=== PATIENT | male | born 1970 | race Caucasian/White ===

== ENCOUNTER → 2018-01-06 | Outpatient (CLI) | payer BC ==
--- NOTE | 2018-01-06 10:14 | P.STRESS ---
- Stress Test Note Stress Test Results/Findings: Exam Performed: stress echo exercise Exam Date: 01/06/18 Reason for Exam: CP Height: 5 ft 11 in Weight: 77.111 kg Protocol: STRESS ECHO Stage: IV Duration of Exercise: 12 Resting Heart Rate: 60 Resting Blood Pressure: 120/68 Maximum Achieved Heart Rate: 159 Maximum Achieved Blood Pressure: 189/65 85% PMHR: 145 100% PMHR: 171 METS: 12.1 Technologist Comment: Stress Test Results/Findings: This is a 47-year-old gentleman with history of of abnormal EKG and known ischemic heart disease being evaluated for cardiac status. He Stress data: Baseline EKG showed a sinus rhythm with normal NV interval and QRS duration. Blood pressure at rest is 120/68 with pulse rate of 60. Patient walked on the Yossi protocol for 12 minutes achieving a maximum heart rate of 159 with a blood pressure of 189/65. EKGs taken during and after exercise did not reveal any changes to suggest ischemia. Echo data: Baseline echo images showed normal wall motion and thickening. Exercise echo images showed augmentation of wall motion and thickening in all segments. Final impression: #1. Negative stress test #2. Negative stress echo
--- NOTE | 2018-01-07 16:13 | ECHOS ---
Stress Test Results/Findings: Exam Performed: stress echo exercise Exam Date: 01/06/18 Reason for Exam: CP Height: 5 ft 11 in Weight: 77.111 kg Protocol: STRESS ECHO Stage: IV Duration of Exercise: 12 Resting Heart Rate: 60 Resting Blood Pressure: 120/68 Maximum Achieved Heart Rate: 159 Maximum Achieved Blood Pressure: 189/65 85% PMHR: 145 100% PMHR: 171 METS: 12.1 Technologist Comment: Stress Test Results/Findings: This is a 47-year-old gentleman with history of of abnormal EKG and known ischemic heart disease being evaluated for cardiac status. He Stress data: Baseline EKG showed a sinus rhythm with normal OR interval and QRS duration. Blood pressure at rest is 120/68 with pulse rate of 60. Patient walked on the Yossi protocol for 12 minutes achieving a maximum heart rate of 159 with a blood pressure of 189/65. EKGs taken during and after exercise did not reveal any changes to suggest ischemia. Echo data: Baseline echo images showed normal wall motion and thickening. Exercise echo images showed augmentation of wall motion and thickening in all segments. Final impression: #1. Negative stress test #2. Negative stress echo MTDD
== END | disposition home or self-care (01) ==
LOC: RADNMMAIN 09:01
PROVIDERS: ATTEND Family Medicine
DX: R94.31 Abnormal electrocardiogram [ECG] [EKG] (principal)
CPT/HCPCS: 93351

== ENCOUNTER → 2018-06-30 | Outpatient (CLI) | payer BC ==
--- NOTE | 2018-06-30 15:39 | US ---
EXAMINATION TYPE: US venous doppler duplex LE LT DATE OF EXAM: 06/30/2018 3:23 PM COMPARISON: NONE CLINICAL HISTORY: Cellulitis of left lower limb L03.116/R22.42 SWELL. Cramping and edema left leg for 1 week SIDE PERFORMED: left TECHNIQUE: The lower extremity deep venous system is examined utilizing real time linear array sonog valerie with graded compression, doppler sonography and color-flow sonography. VESSELS IMAGED: External Iliac Vein (EIV) Common Femoral Vein Deep Femoral Vein Greater Saphenous Vein * Femoral Vein Popliteal Vein Small Saphenous Vein * Proximal Calf Veins (* superficial vessels) Grayscale, color doppler, spectral doppler imaging performed of the deep veins of the left lower extr emity. There is normal flow, compressibility, vascular waveforms. Left Leg: No evidence of DVT as visualized IMPRESSION: No sonographic evidence of deep venous thrombosis within the left lower extremity.
--- NOTE | 2018-07-01 08:30 | XR ---
EXAMINATION TYPE: XR tibia fibula LT DATE OF EXAM: 06/30/2018 COMPARISON: NONE HISTORY: Pain TECHNIQUE: Two views are submitted. FINDINGS: The osseous structures are intact. The joint spaces are preserved. Postsurgical change involving th e tibia tiny spurs involving the calcaneus. IMPRESSION: 1. No acute osseous abnormality.
== END ==
LOC: RADUSWWP 15:00
PROVIDERS: ATTEND Family Medicine
DX: L03.119 Cellulitis of unspecified part of limb (principal); R22.42 Localized swelling, mass and lump, left lower limb